=== PATIENT | female | born 1975 | race Caucasian/White ===

== ENCOUNTER 2018-07-15 08:29 | Emergency (ER) | payer OTHER, SELFPAY ==
[2018-07-15 08:38] VITALS: BP 149/89; PULSE 102; RESP 97; TEMP 37.1; O2SAT 100
--- NOTE | 2018-07-15 08:51 | W.ED.GENAD ---
Discharge Plan Disposition Patient Disposition: HOME Condition: Stable Discharge Details Chief Complaint: Orthopedic Clinical Impression: Sprain of right shoulder Primary Care Provider: Fabi,Local ED Provider: Cristian Arriola Home Meds and New Rx's Prescriptions: No Action No Known Home Meds RF: 0 Discharge Instructions Instructions: Shoulder Sprain (ED), RICE Therapy (ED), Shoulder Pain (ED) Additional Instructions: Continue to use [id number]-hqa-[id number] pain medication and ice. You may slowly advance activity as tolerated over the next couple weeks after resting for 2-3 days. If not improving over the next couple weeks please follow-up with orthopedist for reassessment Stand Alone Forms: School Release Referrals: Kalpesh Coates MD [ [facility] STAFF PHYSICIAN] - Thor Mancera MD [ [facility] STAFF PHYSICIAN] - Alexx Salgado MD [ [facility] STAFF PHYSICIAN] - Discharge Data Discharge Date/Time-TO BE ENTERED AT DEPARTURE: 07/15/18 09:00 Medical Decision Making Patient presenting the emergency department for chief complaint of right shoulder pain. Patient states that this occurred after being in [employer] class yesterday and having an arm bar performed on her right shoulder which caused discomfort. She states she immediately felt pain and discomfort but continues today. Patient used [id number]-fag-yrmaewb therapies last night. Patient has anterior shoulder pain to palpation with some limited over the head extension and posterior reduction of movement mainly due to pain. No concerning findings for fracture dislocation no neurosensory or motor abnormalities are noted distal to the injury. Concern for shoulder sprain versus labrum tear of the shoulder. Patient was encouraged to rest the shoulder over the next 2-3 days and then slowly advance activity as tolerated over the next 2 weeks and if not improving to contact orthopedist for reassessment. Patient encouraged to continue to use jlqm-wqu-wosszbs acetaminophen or ibuprofen as needed for pain. After discussion of diagnosis and plan of care patient has no further needs, questions, or concerns and states clear understanding to return to the emergency department for any worsening. HPI General Mode of arrival: ambulatory. Date/Time Provider Initiated Documentation: 07/15/18 08:32. Limitations to Documentation: no limitations. Information obtained by: patient and RN notes reviewed. History of Present Illness 43 year old F presents to the emergency department with the chief complaint of Right shoulder pain, described as moderate, with intensity rated at 6. Quality is described as sharp, and is localized to the right and upper extremity. Patient started experiencing this day(s) (1) and it has been constant. Rest improves symptom(s), Movement worsens symptoms . Patient notes no other symptoms.. Patient did receive the following treatments prior to arrival, none Related Data Home Medications Medication Instructions Recorded Confirmed Unknown [No Known Home Meds] 07/15/18 07/15/18 Allergies Allergy/AdvReac Type Severity Reaction Status Date / Time Penicillins AdvReac Hives Unverified 07/15/18 09:11 General Stated Complaint: Orthopedic MORRIS: 3 Review of Systems Cardiovascular Denies syncope Musculoskeletal Reports as per HPI, Denies numbness and Denies tingling Integumentary/Breasts Denies rash, Denies sores and Denies wounds Neurologic Denies syncope, Denies numbness and Denies tingling Exam Const General: cooperative and no acute distress Orientation: alert, awake and oriented x3 Resp Effort & Inspection: normal respiratory effort and able to speak in complete sentences Cardio Rate: regular rate Rhythm: regular rhythm Extrem General: normal exam except as noted Right upper extremity: shoulder/upper arm Details: tenderness Location: over the subacromial bursa, axillary nerve sensory function normal and abnormal ROM Details: pain with active ROM Details: in ABduction and in extension and with range as follows (Patient has limited over the head extension due to pain and discomfort as well as posterior ); no swelling, no ecchymosis and no crepitus, elbow/forearm Details: normal to inspection, wrist Details: normal to inspection and hand Details: normal to inspection, normal capillary refill, neurosensory exam normal, tendon exam normal and normal ROM of fingers Course Vital Signs Temperature 37.1 C 07/15/18 08:38 Pulse 102 H 07/15/18 08:38 Respiratory Rate 97 H 07/15/18 08:38 Blood Pressure 149/89 H 07/15/18 08:38 Pulse Oximetry 100 07/15/18 08:38 Temperature 37.1 C 07/15/18 08:38 Temperature Source Temporal Artery Scan 07/15/18 08:38 Pulse 102 H 07/15/18 08:38 Respiratory Rate 97 H 07/15/18 08:38 Respiratory Effort 07/15/18 08:42 Blood Pressure 149/89 H 07/15/18 08:38 Blood Pressure Position Sitting 07/15/18 08:38 Pulse Oximetry 100 07/15/18 08:38 Oxygen Delivery Method Room Air 07/15/18 08:38 Oxygen Flow Rate 0 07/15/18 08:38 Pain Level 6 07/15/18 08:38
--- NOTE | 2018-07-15 08:55 | ED.GENADUL_ITS ---
Discharge Plan Disposition Patient Disposition: HOME Condition: Stable Discharge Details Chief Complaint: Orthopedic Clinical Impression: Sprain of right shoulder Primary Care Provider: Fabi,Local ED Provider: Cristian Arriola Home Meds and New Rx's Prescriptions: No Action No Known Home Meds RF: 0 Discharge Instructions Instructions: Shoulder Sprain (ED), RICE Therapy (ED), Shoulder Pain (ED) Additional Instructions: Continue to use [id number] pain medication and ice. You may slowly advance activity as tolerated over the next couple weeks after resting for 2-3 days. If not improving over the next couple weeks please follow-up with orthopedist for reassessment Stand Alone Forms: School Release Referrals: Kalpesh Coates MD [ [facility] STAFF PHYSICIAN] - Thor Mancera MD [ [facility] STAFF PHYSICIAN] - Alexx Salgado MD [ [facility] STAFF PHYSICIAN] - Discharge Data Discharge Date/Time-TO BE ENTERED AT DEPARTURE: 07/15/18 09:00 Medical Decision Making Patient presenting the emergency department for chief complaint of right shoulder pain. Patient states that this occurred after being in [employer] class yesterday and having an arm bar performed on her right shoulder which caused discomfort. She states she immediately felt pain and discomfort but continues today. Patient used [id number]-tfgosrp therapies last night. Patient has anterior shoulder pain to palpation with some limited over the head extension and posterior reduction of movement mainly due to pain. No concerning findings for fracture dislocation no neurosensory or motor abnormalities are noted distal to the injury. Concern for shoulder sprain versus labrum tear of the shoulder. Patient was encouraged to rest the shoulder over the next 2-3 days and then slowly advance activity as tolerated over the next 2 weeks and if not improving to contact orthopedist for reassessment. Patient encouraged to continue to use [id number]-ukp-wajuags acetaminophen or ibuprofen as needed for pain. After discussion of diagnosis and plan of care patient has no further needs, questions, or concerns and states clear understanding to return to the emergency department for any worsening. HPI General Mode of arrival: ambulatory . Date/Time Provider Initiated Documentation: 07/15/18 08:32 . Limitations to Documentation: no limitations . Information obtained by: patient and RN notes reviewed . History of Present Illness 43 year old F presents to the emergency department with the chief co mplaint of Right shoulder pain, described as moderate, with intensity rated at 6. Quality is described as sharp, and is localized to the right and upper extremity. Patient started experiencing this day(s) (1) and it has been constant. Rest improves symptom(s), Movement worsens symptoms . Patient notes no other symptoms.. Patient did receive the following treatments prior to arrival, none Related Data Home Medications Medication Instructions Recorded Confirmed Unknown [No Known Home Meds] 07/15/18 07/15/18 Allergies Allergy/AdvReac Type Severity Reaction Status Date / Time Penicillins AdvReac Hives Unverified 07/15/18 09:11 General Stated Complaint: Orthopedic MORRIS: 3 Review of Systems Cardiovascular Denies syncope Musculoskeletal Reports as per HPI, Denies numbness and Denies tingling Integumentary/Breasts Denies rash, Denies sores and Denies wounds Neurologic Denies syncope, Denies numbness and Denies tingling Exam Const General: cooperative and no acute distress Orientation: alert, awake and oriented x3 Resp Effort & Inspection: normal respiratory effort and able to speak in complete sentences Cardio Rate: regular rate Rhythm: regular rhythm Extrem General: normal exam except as noted Right upper extremity: shoulder/upper arm Details: tenderness Location: over the subacromial bursa, axillary nerve sensory function normal and abnormal ROM Details: pain with active ROM Details: in ABduction and in extension and with range as follows (Patient has limited over the head extension due to pain and discomfort as well as posterior ); no swelling, no ecchymosis and no crepitus, elbow/forearm Details: normal to inspection, wrist Details: normal to inspection and hand Details: normal to inspection, normal capillary refill, neurosensory exam normal, tendon exam normal and normal ROM of fingers Course Vital Signs Temperature 37.1 C 07/15/18 08:38 Pulse 102 H 07/15/18 08:38 Respiratory Rate 97 H 07/15/18 08:38 Blood Pressure 149/89 H 07/15/18 08:38 Pulse Oximetry 100 07/15/18 08:38 Temperature 37.1 C 07/15/18 08:38 Temperature Source Temporal Artery Scan 07/15/18 08:38 Pulse 102 H 07/15/18 08:38 Respiratory Rate 97 H 07/15/18 08:38 Respiratory Effort 07/15/18 08:42 Blood Pressure 149/89 H 07/15/18 08:38 Blood Pressure Position Sitting 07/15/18 08:38 Pulse Oximetry 100 07/15/18 08:38 Oxygen Delivery Method Room Air 07/15/18 08:38 Oxygen Flow Rate 0 07/15/18 08:38 Pain Level 6 07/15/18 08:38
== END 2018-07-15 09:00 | disposition home or self-care (01) ==
LOC: ER 09:39
PROVIDERS: Emergency Provider Nurse Practitioner Family
DX: S43.401A Unspecified sprain of right shoulder joint, initial encounter (principal); W50.0XXA Accidental hit or strike by another person, initial encounter
CPT/HCPCS: 99282; L3650